=== PATIENT | female | born 1990 | race Caucasian/White ===

== ENCOUNTER 2016-05-25 23:38 | Inpatient (IN) | payer OTHER ==
[~2016-05-25] VITALS: Ht 157.5 cm; Wt 77.5 kg
[~2016-05-25 23:38] MED LIST: DEPO150I IM; IBUP400T20 PO; LAMO100 PO; TYLE3 PO
[2016-05-26] MEDS ORDERED: QUEtiapine FUMARATE 100 MG TAB PO SCH (01:00)
[2016-05-26] MEDS ORDERED: diphenhydrAMINE HCL 50 MG/ML VIAL - HS PRN IM (01:00)
[2016-05-26] MEDS ORDERED: traZODone HCL 50 MG TAB PO PRN (01:00)
[2016-05-26] MEDS ORDERED: LORazepam 2 MG/ML VIAL IM PRN (01:00)
[2016-05-26] MEDS ORDERED: MAGNESIUM HYDROXIDE SUSP 30 ML CUP PO PRN (01:00)
[2016-05-26] MEDS ORDERED: diphenhydrAMINE HCL 50 MG/ML VIAL IM PRN (01:00)
[2016-05-26] MEDS ORDERED: ACETAMINOPHEN 325 MG TAB PO PRN (01:00)
[2016-05-26] MEDS: LORazepam 1 MG TAB PO PRN (01:08)
[2016-05-26 01:10] VITALS: BP 109/59; PULSE 101; RESP 18; TEMP 98; O2SAT 100
[2016-05-26] MEDS: NICOTINE 21 MG/24 HR PATCH T-DERMAL SCH (08:35)
--- NOTE | 2016-05-26 10:46 | HHI.HP ---
Provisional Diagnosis Admission Date May 26, 2016 at 00:25 [place] I. Psychotic disorder Certification of Person's Competence To Provide Express and Informed Consent I have personally examined Adia Menchaca , a person being served at [facility] on, May 26, 2016 10:36. Express and informed consent means consent voluntarily given in writing, by a competent person, after sufficient explanation and disclosure of the subject matter involved to enable the person to make a knowing and willful decision without any element of force, fraud, deceit, duress, or other form of constraint or coercion. This person is 18 years of age or older, is not now known to be incompetent to consent to treatment with a guardian advocate, and does not have a health care surrogate or proxy currently making medical treatment decisions. I have found this person to be one of the following: [x] Competent to provide express and informed consent, as defined above, for voluntary admission to this facility and is competent to provide express and informed consent for treatment. He/she has the consistent capacity to make well reasoned, willful, and knowing decisions concerning his or her medical or mental health treatment. The person fully and consistently understands the purpose of the admission for examination/placement and is fully capable of personally exercising all rights assured [place] Incompetent to provide express and informed consent to voluntary admission, and this is incompetent to provide express and informed consent to treatment. The person must be transferred to involuntary status and a petition for a guardian advocate filed with the Circuit Court. [] Refusing to provide express and informed consent to voluntary admission but is competent to provide express and informed consent for treatment. The person must be discharged or transferred to involuntary status. Form shall be completed within 24 hours of a person's arrival at the receiving facility and filed in the clinical record of each person: 1. Admitted on a voluntary basis 2. Permitted to provide express and informed consent to his/her own treatment 3. Allowed to transfer from involuntary to voluntary status 4. Prior to permitting a person to consent to his or her own treatment after having been previously found incompetent to consent to treatment. History of Present Illness Capacity: Has Capacity HPI This is a 25-year-old female with a known history of polysubstance abuse and a history of cutting herself, who presently does not wish to talk about her recent for admission or provide information. She was transferred here under a Gonzalez act from the [facility] due to reports of paranoia and seeing smoke coming off her body. She was admitting to methamphetamine use their. Apparently her family wants nothing more to do with her and she is now homeless. In the emergency department in the [facility] she was voicing paranoid ideation, visual hallucinations, and vague suicidal threats. At this point the patient refuses to get out of bed and speak with this physician. By report, she has been treated at [facility] services when she was a minor. Review of Systems ROS Limitations: Clinical Condition Except as stated in HPI: all other systems reviewed are Neg Past Psych History Psychological trauma history Unknown. Patient refused to answer. Violence risk - others (6 mos) Minimal, based on recent activity. Violence risk - self (6 mos) Moderate, based on history. Substance Abuse History Drugs/Alcohol past 12 months Patient has a multiyear history of significant drug abuse and is apparently positive for hepatitis C. Due to self-inflicted cuts, she is also being prescribed Bactrim. Her most recent drug abuse has apparently been methamphetamine. Past Family Social History Coded Allergies: Morphine (Verified Allergy, Severe, 05/26/16) PER RECORD FROM [facility] Cultivated Oat Pollen (Verified Allergy, Mild, RASH, 11/22/09) Dust (Verified Allergy, Mild, RASH, 11/22/09) Active Scripts Acetaminophen/Codeine (Tylenol #3)300 Mg/30 Mg Tab1 Tab PO TIDPRN #10 FOR PAIN Prov:CHEMA GUERRERO M.D. 11/22/09 Ibuprofen (Motrin)400 Mg [id number] Mg PO Q8HPRN #21 Ref 1 FOR PAIN Prov:CHEMA GUERRERO M.D. 11/22/09 Reported Medications Lamotrigine (Lamictal)100 Mg [id number] Mg PO DAILY 11/22/09 Medroxyprogesterone Acetate (Depo-Provera Contraceptive)150 Mg/Ml [id number] Mg IM [id number] 11/22/09 Current Medications Medications (Trade) Dose Ordered Sig/Geena Route Start Time Stop Time Status Last Admin (Ativan) 1 mg Q6H PRN PO 05/26/16 01:00 05/26/16 01:08 (Ativan Inj) 1 mg Q6H PRN IM 05/26/16 01:00 (Benadryl) 50 mg Q6H PRN PO 05/26/16 01:00 (Benadryl Inj) 50 mg Q6H PRN IM 05/26/16 01:00 (Benadryl) 50 mg HS PRN PO 05/26/16 01:00 (Benadryl Inj) 50 mg HS PRN IM 05/26/16 01:00 (Desyrel) 50 mg HS PRN PO 05/26/16 01:00 (Tylenol) 650 mg Q4H PRN PO 05/26/16 01:00 (Milk Of Magnesia Liq) 30 ml DAILY PRN PO 05/26/16 01:00 (Mag-Al Plus Susp Liq) 30 ml Q6H PRN PO 05/26/16 01:00 (Habitrol 21 Mg Patch.24 Hr) 1 patch DAILY T-DERMAL 05/26/16 09:00 Miscellaneous Information 1 HS T-DERMAL 05/26/16 21:00 Family History Unknown. Patient refuses to answer. Social History Incomplete. Patient refuses to answer. She is homeless with a significant history of drug abuse, cutting herself and family discord. Patient's Strengths (min. 2) Resilient and cognitively intact. Physical Exam GENERAL: SKIN: Warm and dry. HEAD: Normocephalic. EYES: No scleral icterus. No injection or drainage. NECK: Supple, trachea midline. No JVD or lymphadenopathy. CARDIOVASCULAR: Regular rate and rhythm without murmurs, gallops, or rubs. RESPIRATORY: Breath sounds equal bilaterally. No accessory muscle use. GASTROINTESTINAL: Abdomen soft, non-tender, nondistended. MUSCULOSKELETAL: No cyanosis, or edema. BACK: Nontender without obvious deformity. No CVA tenderness. Vital Signs Vital Signs Date Time Temp Pulse Resp B/P Pulse Ox O2 Delivery O2 Flow Rate FiO2 05/26/16 01:10 98.0 101 18 109/59 100 Mental Status Examination At this time patient refuses to cooperate with mental status exam. Speech: Unremarkable Orientation: Person Memory: Unremarkable Thought Process: Goal Directed Thought Content: Other Hallucination Type: Visual Attention and Concentration: Other Attention Remarks Purposely refuses to pay attention. Suicidal Ideation: No Previous Suicide Attempts: No Homicidal Ideation: No Previous Homicide Attempts: No Insight: Poor Judgement: Unrealistic Affect: Oppositional Affect if Inappropriate: Blunt Mood: Oppositional Motor Activity: Normal gait Assessment & Plan Problem List: (1) Psychotic disorder ICD Code: F29 Assessment & Plan Estimated LOS: days patient will be observed and evaluated for further signs of psychosis and investigated with regard to history, toxicology screens, laboratory results and radiographic scans of her brain to determine if her psychosis is drug induced or at this point some other biological process. We will not start medication management for her psychosis until she is more alert and able to communicate or willing to communicate. At this time she will remain under a Gonzalez act. It is anticipated after she receives significant sleep that she will be able to participate more actively in her evaluation and treatment. It is also anticipated she will be in the hospital for several days. Chema Romero MD May 26, 2016 10:46
[2016-05-26] MEDS ORDERED: BACT800T5 PO (10:50)
[2016-05-26 17:00] VITALS: BP 99/54; PULSE 77; RESP 18; TEMP 98.2; O2SAT 98
[2016-05-26] MEDS: SULFAMETHOXAZOLE-TRIMETHOPRIM DS 800-160 MG TAB PO SCH (20:49)
[2016-05-26] MEDS: REMOVE OLD NICOTINE PATCH T-DERMAL SCH (20:49)
[2016-05-26] MEDS: diphenhydrAMINE HCL 50 MG CAP - HS PRN PO (20:51)
[2016-05-27 05:42] VITALS: BP 97/53; PULSE 68; RESP 17; TEMP 97.6; O2SAT 98
[2016-05-27] MEDS: NICOTINE 21 MG/24 HR PATCH T-DERMAL SCH (08:20)
[2016-05-27] MEDS: SULFAMETHOXAZOLE-TRIMETHOPRIM DS 800-160 MG TAB PO SCH ×2 (08:23→20:30)
--- NOTE | 2016-05-27 13:15 | HHI.PYPN ---
Subjective Remarks Pt seen and discussed with staff. Staff report that pt has been paranoid and believed smoke was coming out of her body. Today pt has been sleeping most of day. She reports paranoia is decreasing. She reports hx of methamphetamine abuse. She reports hx of previous psychiatric treatment but is not currently involved in seeing provider. She reports that she is now homeless after leaving relationship. Review of Systems Psychiatric: COMPLAINS OF: Delusions Objective Alert: Yes [place]: Person, Place, Date, Situation Mood: Calm Affect: Restricted Memory Intact: Immediate, Recent, Remote Hallucinations: Other (denies) Delusions: Yes Delusion Type: Paranoid Suicidal: Ideation (denies) Homicidal: Ideation (denies) Insight/Judgement poor Vitals/IOs Vital Signs Date Time Temp Pulse Resp B/P Pulse Ox O2 Delivery O2 Flow Rate FiO2 05/27/16 05:42 97.6 68 17 97/53 98 Assessment & Plan Problem List: (1) Psychotic disorder ICD Code: F29 Assessment & Plan Psychosis improving. Most likely related to substance abuse. Continue to observe. If symptoms do not clear, will consider trial of low dose antipsychotic. Estimated LOS: days Justification for Cont. Inpt. observation for safety Felipa Iverson MD May 27, 2016 13:14
[2016-05-27 15:15] VITALS: BP 117/70; PULSE 76; RESP 17; TEMP 98.7; O2SAT 100
[2016-05-27 19:51] VITALS: BP 117/70; PULSE 76; RESP 17; TEMP 98.7
[2016-05-27] MEDS: diphenhydrAMINE HCL 50 MG CAP - HS PRN PO (20:30)
[2016-05-27] MEDS: REMOVE OLD NICOTINE PATCH T-DERMAL SCH (20:31)
[2016-05-28 05:55] VITALS: BP 101/54; PULSE 70; RESP 18; TEMP 98.5; O2SAT 97
[2016-05-28] MEDS: SULFAMETHOXAZOLE-TRIMETHOPRIM DS 800-160 MG TAB PO SCH ×2 (08:25→20:35)
[2016-05-28] MEDS: NICOTINE 21 MG/24 HR PATCH T-DERMAL SCH (08:26)
[2016-05-28 16:23] VITALS: BP 118/56; PULSE 84; RESP 18; TEMP 98.3; O2SAT 98
[2016-05-28] MEDS: REMOVE OLD NICOTINE PATCH T-DERMAL SCH (20:34)
[2016-05-28] MEDS: diphenhydrAMINE HCL 50 MG CAP - HS PRN PO (20:35)
--- NOTE | 2016-05-28 23:07 | HHI.PYPN ---
Subjective Remarks Pt seen and discussed with staff. She denies return of psychotic symptoms, but reports mood remains "all over the place." She reports that she was given depakote and gabapentin in nursing home and found it helpful for mood. Pt wishes to restart medication. Risks vs benefits discussed with pt including potential side effects and indication for use. No SI/HI. 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 Most likely due to substance abuse. It appears pt may have underlying mood disorder. Will restart depakote and check level. Estimated LOS: days Justification for Cont. Inpt. medication changes Felipa Iverson MD May 28, 2016 23:07
[2016-05-29 06:40] VITALS: BP 106/56; PULSE 71; RESP 17; TEMP 98.1; O2SAT 97
[2016-05-29 07:20] LABS: AUTOMATED NEUTROPHIL # 4.1 TH/MM3 (1.8-7.7); BASOPHIL % 0.6 % (0.0-2.0); EOSINOPHIL # 0.3 TH/MM3 (0-0.4); EOSINOPHIL % 3.4 % (0.0-4.0); HEMO FLAGS DIFF FINAL; LYMPH % 32.2 % (9.0-44.0); LYMPHOCYTE # 2.5 TH/MM3 (1.0-4.8); MEAN CELL VOLUME 84.3 FL (80.0-100.0); MEAN CORPUSCULAR HEMOGLOBIN 28.7 PG (27.0-34.0); MONO % 9.6 % (0.0-8.0); NEUT % 54.2 % (16.0-70.0); PLATELET COUNT 268 TH/MM3 (150-450); RED BLOOD COUNT 4.62 MIL/MM3 (4.00-5.30); RED CELL DISTRIBUTION WIDTH 16.5 % (11.6-17.2); WHITE BLOOD COUNT 7.6 TH/MM3 (4.0-11.0)
[2016-05-29 07:51] LABS: ALKALINE PHOSPHATASE 54 U/L (45-117); ALT (GPT) 16 U/L (10-53); ANION GAP 9 MEQ/L (5-15); AST (GOT) 12 U/L (15-37); BICARBONATE 25.3 MEQ/L (21.0-32.0); BLOOD UREA NITROGEN 12 MG/DL (7-18); CHLORIDE 105 MEQ/L (98-107); GLOMERULAR FILTRATION RATE 76 ML/MIN (>89); POTASSIUM 4.4 MEQ/L (3.5-5.1); SODIUM (NA) 139 MEQ/L (136-145); TOTAL BILIRUBIN ADULT 0.3 MG/DL (0.2-1.0)
[2016-05-29] MEDS: DIVALPROEX DR 500 MG TABEC PO SCH ×2 (08:36→20:34)
[2016-05-29] MEDS: SULFAMETHOXAZOLE-TRIMETHOPRIM DS 800-160 MG TAB PO SCH ×2 (08:36→20:34)
[2016-05-29] MEDS: NICOTINE 21 MG/24 HR PATCH T-DERMAL SCH (08:36)
--- NOTE | 2016-05-29 11:03 | HHI.PYPN ---
Subjective Remarks Patient is fraser and irritable today. She feels that her medications have not been started as promised. She would like to return to her Neurontin and Depakote and possibly take an antidepressant medicine as well. She states she is willing to be here voluntarily. Apparently she is having some difficulty with her sheriff's officer as well. Review of Systems ROS Limitations: Clinical Condition Except as stated in HPI: all other systems reviewed are Neg Objective Alert: Yes [place]: Person, Place, Date, Situation Mood: Agitated Affect: Labile Memory Intact: Immediate, Recent, Remote Hallucinations: Other (denies) Delusions: No Delusion Type: Other (none) Suicidal: Ideation (denies) Homicidal: Ideation (denies) Insight/Judgement Mildly impaired but adequate. Labs Test 05/29/16 07:05 White Blood Count 7.6 TH/MM3 Red Blood Count 4.62 MIL/MM3 Hemoglobin 13.3 GM/DL Hematocrit 39.0 % Mean Corpuscular Volume 84.3 FL Mean Corpuscular Hemoglobin 28.7 PG Mean Corpuscular Hemoglobin 34.0 % Concent Red Cell Distribution Width 16.5 % Platelet Count 268 TH/MM3 Mean Platelet Volume 7.0 FL Neutrophils (%) (Auto) 54.2 % Lymphocytes (%) (Auto) 32.2 % Monocytes (%) (Auto) 9.6 % Eosinophils (%) (Auto) 3.4 % Basophils (%) (Auto) 0.6 % Neutrophils # (Auto) 4.1 TH/MM3 Lymphocytes # (Auto) 2.5 TH/MM3 Monocytes # (Auto) 0.7 TH/MM3 Eosinophils # (Auto) 0.3 TH/MM3 Basophils # (Auto) 0.0 TH/MM3 CBC Comment DIFF FINAL Differential Comment Sodium Level 139 MEQ/L Potassium Level 4.4 MEQ/L Chloride Level 105 MEQ/L Carbon Dioxide Level 25.3 MEQ/L Anion Gap 9 MEQ/L Blood Urea Nitrogen 12 MG/DL Creatinine 0.90 MG/DL Estimat Glomerular Filtration 76 ML/MIN Rate Random Glucose 94 MG/DL Calcium Level 8.7 MG/DL Total Bilirubin 0.3 MG/DL Aspartate Amino Transf 12 U/L (AST/SGOT) Alanine Aminotransferase 16 U/L (ALT/SGPT) Alkaline Phosphatase 54 U/L Total Protein 7.7 GM/DL Albumin 3.6 GM/DL Vitals/IOs Vital Signs Date Time Temp Pulse Resp B/P Pulse Ox O2 Delivery O2 Flow Rate FiO2 05/29/16 06:40 98.1 71 17 106/56 97 Assessment & Plan Problem List: (1) Adjustment disorder with mixed disturbance of emotions and conduct ICD Code: F43.25 (2) Mood disorder ICD Code: F39 Assessment & Plan Estimated LOS: days patient feels fraser and irritable and depressed and would like to be stabilized on her medications. This includes at least Depakote and Neurontin. This physician will prescribe those medicines today. Patient has signed voluntarily but this physician feels she is attempting to avoid the legal system because she is on probation. Justification for Cont. Inpt. Patient will not contract for safety. Chema Romero MD May 29, 2016 11:03
[2016-05-29 15:15] VITALS: BP 105/59; PULSE 92; RESP 18; TEMP 98.5; O2SAT 100
[2016-05-29] MEDS: diphenhydrAMINE HCL 50 MG CAP PO PRN (16:04)
[2016-05-29] MEDS: GABAPENTIN 300 MG CAP PO SCH (20:34)
[2016-05-29] MEDS: REMOVE OLD NICOTINE PATCH T-DERMAL SCH (20:35)
[2016-05-29] MEDS: diphenhydrAMINE HCL 50 MG CAP - HS PRN PO (20:35)
[2016-05-30 06:25] VITALS: BP 128/62; PULSE 56; RESP 18; TEMP 98.5; O2SAT 97
[2016-05-30] MEDS: GABAPENTIN 300 MG CAP PO SCH ×2 (09:03→20:27)
[2016-05-30] MEDS: SULFAMETHOXAZOLE-TRIMETHOPRIM DS 800-160 MG TAB PO SCH ×2 (09:03→20:27)
[2016-05-30] MEDS: DIVALPROEX DR 500 MG TABEC PO SCH ×2 (09:03→20:27)
[2016-05-30] MEDS: REMOVE OLD NICOTINE PATCH T-DERMAL SCH (09:05)
[2016-05-30] MEDS: NICOTINE 21 MG/24 HR PATCH T-DERMAL SCH (09:05)
--- NOTE | 2016-05-30 13:12 | HHI.PYPN ---
Subjective Remarks Patient was seen and discussed with the staff psychiatrist. Patient reported that she has been feeling depressed and frustrated sometimes she feels anxious nervous and worried but she could be reassured. She tends to isolate herself and keeps to herself in her room. But no behavior or management problem reported. Patient denied any suicidal ideation intentions or plan. Denied any active auditory or visual hallucinations. Denied any behavior or management problem. She has been sleeping fairly well. We will try her on the when necessary Ativan for anxiety. Continue the same treatment Review of Systems Except as stated in HPI: all other systems reviewed are Neg Psychiatric: COMPLAINS OF: Anxiety, Mood changes, Depression Objective Alert: Yes [place]: Person, Place, Date, Situation Mood: Anxious, Depressed Affect: Labile, Restricted Memory Intact: Immediate, Recent, Remote Hallucinations: Other (denies) Delusions: No Delusion Type: Other (none) Suicidal: Ideation (denies) Homicidal: Ideation (denies) Insight/Judgement Fair Vitals/IOs Vital Signs Date Time Temp Pulse Resp B/P Pulse Ox O2 Delivery O2 Flow Rate FiO2 05/30/16 06:25 98.5 56 18 128/62 97 Assessment & Plan Problem List: (1) Adjustment disorder with mixed disturbance of emotions and conduct ICD Code: F43.25 (2) Mood disorder ICD Code: F39 Assessment & Plan Estimated LOS: days Justification for Cont. Inpt. Monitoring of the medication Request HC Surrog/Guard Advoc?: No Erik Hopson MD May 30, 2016 13:12
[2016-05-30] MEDS ORDERED: LORazepam 0.5 MG TAB PO PRN (13:15)
[2016-05-30 15:31] VITALS: BP 114/63; PULSE 96; RESP 18; TEMP 98.1; O2SAT 97
[2016-05-30] MEDS: ALUMINUM/MAGNESIUM/SIMETH 30 ML CUP PO PRN (20:26)
[2016-05-31 06:40] VITALS: BP 113/51; PULSE 100; RESP 17; TEMP 99.4
[2016-05-31] MEDS: CITALOPRAM HYDROBROMIDE 40 MG TAB PO SCH (08:59)
[2016-05-31] MEDS: SULFAMETHOXAZOLE-TRIMETHOPRIM DS 800-160 MG TAB PO SCH ×2 (08:59→20:20)
[2016-05-31] MEDS: DIVALPROEX DR 500 MG TABEC PO SCH ×2 (08:59→20:22)
[2016-05-31] MEDS: GABAPENTIN 300 MG CAP PO SCH ×2 (08:59→20:21)
[2016-05-31] MEDS: NICOTINE 21 MG/24 HR PATCH T-DERMAL SCH (09:00)
[2016-05-31] MEDS: ALUMINUM/MAGNESIUM/SIMETH 30 ML CUP PO PRN (09:00)
--- NOTE | 2016-05-31 13:19 | HHI.PYPN ---
Subjective Remarks Patient remained seclusive and does not wish to talk with this physician. She is eating lunch. It is difficult to ascertain if she is truly psychotic or if she is malingering to have a place to stay. Review of Systems ROS Limitations: Clinical Condition Except as stated in HPI: all other systems reviewed are Neg Objective Alert: Yes [place]: Person, Place Mood: Anxious, Depressed Affect: Restricted Memory Intact: Immediate, Recent, Remote Hallucinations: Auditory, Other (denies) Delusions: Yes Delusion Type: Paranoid Suicidal: Ideation (denies) Homicidal: Ideation (denies) Insight/Judgement Impaired based on her behavior in the hospital. Vitals/IOs Vital Signs Date Time Temp Pulse Resp B/P Pulse Ox O2 Delivery O2 Flow Rate FiO2 05/31/16 06:40 99.4 100 17 113/51 05/30/16 15:31 97 Assessment & Plan Problem List: (1) Psychotic disorder ICD Code: F29 (2) Adjustment disorder with mixed disturbance of emotions and conduct ICD Code: F43.25 (3) Mood disorder ICD Code: F39 Assessment & Plan Estimated LOS: days Justification for Cont. Inpt. Unable to care for self. Request HC Surrog/Guard Advoc?: No Chema Romero MD May 31, 2016 13:19
[2016-05-31 19:27] VITALS: BP 96/60; PULSE 50; RESP 18; TEMP 98.7; O2SAT 100
[2016-05-31] MEDS: LORazepam 1 MG TAB PO PRN (20:20)
[2016-05-31] MEDS: diphenhydrAMINE HCL 50 MG CAP PO PRN (20:21)
[2016-05-31] MEDS: REMOVE OLD NICOTINE PATCH T-DERMAL SCH (20:22)
[2016-06-01 05:26] VITALS: BP 105/55; PULSE 88; RESP 16; TEMP 98.6; O2SAT 100
[2016-06-01] MEDS: CITALOPRAM HYDROBROMIDE 40 MG TAB PO SCH (08:49)
[2016-06-01] MEDS: DIVALPROEX DR 500 MG TABEC PO SCH ×2 (08:49→21:07)
[2016-06-01] MEDS: GABAPENTIN 300 MG CAP PO SCH ×2 (08:49→21:07)
[2016-06-01] MEDS: SULFAMETHOXAZOLE-TRIMETHOPRIM DS 800-160 MG TAB PO SCH ×2 (08:49→21:07)
[2016-06-01] MEDS: LORazepam 1 MG TAB PO PRN (08:50)
[2016-06-01] MEDS: NICOTINE 21 MG/24 HR PATCH T-DERMAL SCH (08:52)
--- NOTE | 2016-06-01 11:29 | HHI.PYPN ---
Subjective Remarks Patient seen and examined with nurse. Chart reviewed. Case discussed with nursing staff who reports patient has been fairly seclusive to her room and has been generally medication compliant, although I do see that she refused the dose of Depakote. I do see that Dr. Romero articulated some concerns about malingering in this patient. On my examination today, patient's thoughts are linear and logical and there is no evidence of any psychosis. However, she is quite vague regarding her current psychiatric symptomatology. She would like to be on antidepressant as she describes transient periods of low mood lasting days, and I do see that Celexa was added, and I updated her about this change. She denies any SI or HI. She is extremely medication seeking for Ativan, but I have declined to titrate this medication because of patient's history of substance use disorder. I have endeavored to work with the patient to identify what symptom it is that she wants the Ativan for and to try to treat that symptom, but the patient cannot really tell me why she wants more Ativan and in any event declines additional medication management generally. My suspicion is that she was simply hoping for more Ativan. Denies side effects from medications. Review of Systems Other No physical complaints today Objective Alert: Yes [place]: Person, Place (at least) Mood: Calm Affect: Blunted Memory Intact: Comment (seems intact on clinical exam) Hallucinations: Other (no AVH) Delusions: No Delusion Type: Other (no delusional material) Suicidal: Ideation (denies suicidal ideation) Homicidal: Ideation (denies homicidal ideation) Insight/Judgement Fair Remarks No abnormal motor movements noted. No signs of any withdrawal noted. Thought process linear. Speech within normal limits for rate, tone and volume. Grooming and hygiene are at least fair. Labs Labs reviewed. I note that a beta hCG was not checked here. Unclear if this was checked at outside hospital. I have ordered a stat beta hCG now. Vitals/IOs Vital Signs Date Time Temp Pulse Resp B/P Pulse Ox O2 Delivery O2 Flow Rate FiO2 06/01/16 05:26 98.6 88 16 105/55 100 Assessment & Plan Problem List: (1) Mood disorder ICD Code: F39 (2) History of substance use disorder Assessment & Plan: ?active ICD Code: Z87.898 Assessment & Plan There is no evidence of any ongoing psychosis, and I have removed the psychotic disorder diagnosis from her diagnostic schema. Patient's remaining psychiatric symptomatology is exceedingly vague, and I share Dr. Romero's concerns about malingering, part of the focus of which might be for benzodiazepines. I have discontinued the patient's Ativan. I will continue her Depakote, gabapentin and Celexa as ordered. The patient has declined any further medication management. She has Benadryl as needed available for the management of any anxiety. I will check a stat beta hCG and I have added an ammonia level to the Depakote level already ordered for tomorrow morning. Continue other medications and care as ordered. Justification for Cont. Inpt. Monitoring for impairments in safety. So far no evidence of such. Discharge Planning Given that there has been no evidence of ongoing impairments in safety and there is no evidence of ongoing psychosis and given that the patient is declining further medication management, I have asked the counselor to begin final discharge planning. Anticipate discharge tomorrow barring some clinical worsening. Request HC Surrog/Guard Advoc?: No Garrett Saravia MD Jun 01, 2016 11:29
[2016-06-01 18:19] VITALS: BP 104/51; PULSE 86; RESP 16; TEMP 98.2; O2SAT 100
[2016-06-01] MEDS: REMOVE OLD NICOTINE PATCH T-DERMAL SCH (21:00)
[2016-06-01] MEDS: diphenhydrAMINE HCL 50 MG CAP PO PRN (21:07)
[2016-06-02 06:01] VITALS: BP 119/79; PULSE 87; RESP 18; TEMP 97.5; O2SAT 100
[2016-06-02] MEDS: NICOTINE 21 MG/24 HR PATCH T-DERMAL SCH (09:14)
[2016-06-02] MEDS: REMOVE OLD NICOTINE PATCH T-DERMAL SCH (09:14)
[2016-06-02] MEDS: GABAPENTIN 300 MG CAP PO SCH (09:15)
[2016-06-02] MEDS: DIVALPROEX DR 500 MG TABEC PO SCH (09:15)
[2016-06-02] MEDS: SULFAMETHOXAZOLE-TRIMETHOPRIM DS 800-160 MG TAB PO SCH (09:15)
[2016-06-02] MEDS: CITALOPRAM HYDROBROMIDE 40 MG TAB PO SCH (09:15)
[2016-06-02] MEDS ORDERED: BACT800T5 PO (11:20)
[2016-06-02] MEDS ORDERED: NEUR300C PO (11:20)
[2016-06-02] MEDS ORDERED: CELE40TA PO (11:20)
[2016-06-02] MEDS ORDERED: DIVA500T PO (11:20)
--- NOTE | 2016-06-02 11:21 | HHI.DS ---
Psychiatry Discharge Summary Inpatient Psychiatric care?: Yes Advance Directive: No Reason Not Provided: PAPERWORK GIVEN Mental Health AdvanceDirective: No Health Care Proxy: No Admission Admission Date May 26, 2016 at 00:25 Admission Diagnosis: (1) Psychotic disorder ICD Code: F29 Brief History This is a 25-year-old female with a known history of polysubstance abuse and a history of cutting herself, who presently does not wish to talk about her recent for admission or provide information. She was transferred here under a Gonzalez act from the [facility] due to reports of paranoia and seeing smoke coming off her body. She was admitting to methamphetamine use their. Apparently her family wants nothing more to do with her and she is now homeless. In the emergency department in the [facility] she was voicing paranoid ideation, visual hallucinations, and vague suicidal threats. At this point the patient refuses to get out of bed and speak with this physician. By report, she has been treated at [facility] when she was a minor. Tobacco Use In Past 30 Days: 5 or More Cigarettes/Day Alcohol Use: Never Hospital Course Patient was admitted to a locked, inpatient psychiatric unit. Appropriate precautions were in place throughout patient's hospital stay. Patient was seen and examined daily on the unit by psychiatry and also visited by counselor. Medications were adjusted. Patient tolerated medication changes well without significant side effects. Patient had improvement in her presenting psychiatric symptomatology. In particular she had resolution of her presenting psychosis. There was no evidence of any suicidality or homicidality on the inpatient unit. Review of charting indicates patient has been sleeping and eating well prior to discharge. Her participation in therapeutic unit activities has been limited. Dr. Romero, who attended the patient at the beginning of her hospital stay, had concerns regarding malingering either for custodial or to avoid legal consequences, and while attended on her case the patient was quite medication seeking for benzodiazepines, and this may represent an additional source of secondary gain. On the day of discharge: Patient seen and examined with counselor and occupational therapist in treatment team. Chart reviewed. Case discussed with nurse, counselor and occupational therapist. Patient has been no behavioral problem per nursing staff. Per counselor, patient's options for long-term, stable housing are limited. Per occupational therapist, patient's participation in groups has been minimal. On my examination today, the patient is smiling and appears to be in good spirits. She does not describe any issues with mood. She denies any suicidal or homicidal ideation on direct questioning. She denies audiovisual hallucinations, and I can elicit no delusional beliefs, nor is there any other evidence of ongoing psychosis. She does remain medication seeking for benzodiazepines. She denies side effects from medications besides perhaps some mild nausea without emesis. She has no physical complaints otherwise. I did offer to retain the patient on the inpatient unit for additional observation, but the patient is requesting discharge from the inpatient psychiatric unit today. Weighing the acute, chronic, and protective factors, I refrigeration houseman to a reasonable degree of medical certainty that the patient is at low imminent risk of harm to self or others from a mental illness as defined under the Gonzalez act and her level of function is adequate for outpatient care. Patient does not meet criteria for involuntary psychiatric hospitalization and inasmuch as she is requesting discharge from the inpatient psychiatric unit today, I will discharge her to self with psychiatric follow-up as arranged by counselor. Patient is also follow-up with primary care. I counseled the patient regarding warning signs for need to return to the psychiatric emergency room as part of the general safety plan. Results Blood Pressure 119 / 79 Vital Signs Date Time Temp Pulse Resp B/P Pulse Ox O2 Delivery O2 Flow Rate FiO2 06/02/16 06:01 97.5 87 18 119/79 100 Laboratory Results Test 06/02/16 09:05 Valproic Acid (Depakene) Level 69 MCG/ML (50-100) Summary of Major Lab Results Depakote level is within the therapeutic range and ammonia level was not elevated. Summary of Procedures None done Imaging None done Pending results at discharge: No Medications # of Antipsychotic meds at D/C: 0 Approp Antipsych med options 1 - Minimum of three failed multiple trials of monotherapy. 2 - Documented plan to taper to monotherapy due to previous use of multiple meds OR cross-taper in progress at D/C. 3 - Documentation of augmentation of Clozapine. 4 - Justification other than those listed in allowable values 1-3, document here : Discharge Discharge Date: Jun 02, 2016 Discharge Diagnosis: (1) Mood disorder Diagnosis: Principal (stabilized) ICD Code: F39 (2) History of substance use disorder Diagnosis: Secondary ICD Code: Z87.898 GAF on discharge is 55. Mental Status Exam at Disch Patient is casually dressed. She is well groomed and maintaining basic hygiene. She is awake and alert and oriented to person and hospital at least. No evidence of delirium. No abnormal motor movements noted. Speech is within normal limits for rate, tone and volume. Language and fund of knowledge seem average. Mood is fair and affect is full and reactive. Thought process linear. No loosening of associations. No evident delusions. Denies audiovisual hallucinations. Denies suicidal or homicidal ideation. Insight and judgment are fair. Pt Condition on Discharge: Stable Discharge Disposition: Discharge Home Discharge Instructions Diet Instructions: As Tolerated, No Restrictions Activities you can perform: Weight Bearing as Desiree Scheduled Appointment: [facility] Appointment Date: Jun 07, 2016 Appointment Time: 7:30am New Medications: Citalopram (Celexa) 40 Mg Tab 40 MG PO DAILY Mental Health Days 10 Ref [address] (Divalproex DR) 500 Mg Tabdr 500 MG PO BID Mental Health Days 10 Ref 2 TAB Gabapentin (Neurontin) 300 Mg Cap 600 MG PO BID Mental Health Days 10 Ref 2 CAP Sulfamethoxazole-Trimethoprim (Bactrim DS) 800-160 Mg Tab 1 TAB PO Q12HR Antibiotic Days 3 Ref 0 TAB Discontinued Medications: Acetaminophen/Codeine (Tylenol #3) 300 Mg/30 Mg Tab 1 TAB PO TIDPRN FOR PAIN #10 Ibuprofen (Motrin) 400 Mg Tab 400 MG PO Q8HPRN FOR PAIN #21 Ref 1 Lamotrigine (Lamictal) 100 Mg Tab 100 MG PO DAILY Medroxyprogesterone Acetate (Depo-Provera Contraceptive) 150 Mg/Ml Susp 150 MG IM [id number] Sulfamethoxazole-Trimethoprim (Bactrim DS) 800-160 Mg Tab 1 TAB PO BID Infection Days 10 Ref 0 TAB Discharge Time <= 30 minutes Discharge/Advance Care Plan Health Problems: (1) Mood disorder (2) History of substance use disorder Goals to promote your health * To prevent worsening of your condition and complications * To maintain your health at the optimal level Directions to meet your goals Take your medications as prescribed Follow your dietary instruction Follow activity as directed Keep your appointments as scheduled Take your immunizations and boosters as scheduled If your symptoms worsen call your PCP, if no PCP go to Urgent Care Center or Emergency Room For 24/ questions related to your inpatient stay or results of tests pending at discharge, please contact Dr. Garrett Saravia at Smoking is Dangerous to Your Health. Avoid second hand smoking Garrett Saravia MD Jun 02, 2016 11:20
== END 2016-06-02 14:55 | disposition home or self-care (01) | DRG 897 ==
LOC: H260 05-26 00:25 → H270 05-26 00:33
PROVIDERS: ADMIT Psychiatry & Neurology Psychiatry; ATTEND Psychiatry & Neurology Psychiatry
DX: F19.151 Other psychoactive substance abuse with psychoactive substance-induced psychotic disorder with hallucinations (principal); F68.10 Factitious disorder imposed on self, unspecified; B18.2 Chronic viral hepatitis C; F15.90 Other stimulant use, unspecified, uncomplicated; Z59.0 Homelessness; F43.25 Adjustment disorder with mixed disturbance of emotions and conduct; F41.9 Anxiety disorder, unspecified
CPT/HCPCS: 80053; 80164; 82140; 84703; 85025; Q0163

== ENCOUNTER 2016-06-05 00:19 | Emergency (ER) | payer SELFPAY ==
[~2016-06-05] VITALS: Ht 157.5 cm; Wt 76.0 kg
[~2016-06-05 00:19] MED LIST changes: +BACT800T5 PO; +CELE40TA PO; -DEPO150I IM; +DIVA500T PO; -IBUP400T20 PO; -LAMO100 PO; +NEUR300C PO; -TYLE3 PO
[2016-06-05 00:22] VITALS: BP 105/58; PULSE 99; RESP 16; TEMP 98.4; O2SAT 99
[2016-06-05 02:20] VITALS: BP 97/55; PULSE 87; RESP 18; TEMP 98; O2SAT 99
[2016-06-05] MEDS ORDERED: SODIUM CHLORIDE 0.9% FLUSH 5 ML FLUSH IVF PRN (02:30)
--- NOTE | 2016-06-05 02:32 | PD ---
HPI Chief Complaint: Abdominal Pain Time Seen by Provider: 02:18 Travel History International Travel<30 days: No Contact w/Intl Traveler<30days: No Traveled to known affect area: No History of Present Illness HPI This is a 25-year-old female who presents to the emergency department with abdominal pain that she says is been going on all day, constant, feeling like her intestines are exploding, worse with bowel movements, associated with multiple episodes of vomiting and nausea. She denies any fevers or chills. She denies any dysuria or hematuria and denies any vaginal discharge. She says she's never had abdominal pain like this before. She doesn't think she could be . PFSH Past Medical History ADHD: No Arthritis: Yes (POSSIBLE [place] ARTHRITIS) Bipolar Disorder: Yes Anxiety: Yes Depression: Yes Cancer: No Cardiovascular Problems: No Diabetes: No Diminished Hearing: No Endocrine: No Gastrointestinal Disorders: Yes (HEP C) Genitourinary: No Immune Disorder: No Musculoskeletal: Yes (SPINAL STENOSIS, SCOLIOSIS) Neurologic: Yes Psychiatric: Yes (HBS HX/SCHIZOAFFECTIVE, PTSD, ANXIETY DO) Reproductive: No Respiratory: No Migraines: No Schizophrenia: Yes Seizures: Yes (NONE RECENTLY) Thyroid Disease: No Ulcer: No ?: Not LMP: 04/14/16 : 2 Para: 1 Miscarriage: 1 : 1 Dilation and Curettage (D&C): Yes Past Surgical History Appendectomy: No Section: Yes (2008) Cholecystectomy: No Other Surgery: Yes (RECENT ELECTIVE ) Social History Alcohol Use: No Tobacco Use: Yes (5-10 cigs daily) Substance Use: Yes (AMPHETAMINES) Allergies-Medications (Allergen,Severity, Reaction): Coded Allergies: Morphine (Verified Allergy, Severe, 06/05/16) PER RECORD FROM [facility] Cultivated Oat Pollen (Verified Allergy, Mild, RASH, 06/05/16) Dust (Verified Allergy, Mild, RASH, 06/05/16) Reported Meds & Prescriptions Reported Meds & Active Scripts Active Bactrim DS (Sulfamethoxazole-Trimethoprim) 800-160 Mg Tab 1 Tab PO Q12HR 3 Days Neurontin (Gabapentin) 300 Mg Cap 600 Mg PO BID [address] (Divalproex Sodium) 500 Mg Tabdr 500 Mg PO BID 10 Days Celexa (Citalopram Hydrobromide) 40 Mg Tab 40 Mg PO DAILY 10 Days Review of Systems Except as stated in HPI: all other systems reviewed are Neg Physical Exam Narrative GENERAL:Well appearing, no acute distress SKIN: Linear scars on the bilateral upper extremities. HEAD: Atraumatic. Normocephalic. EYES: Pupils dilated and reactive. No injection or drainage. ENT: Moist mucous membranes NECK: Trachea midline. CARDIOVASCULAR: Regular rate and rhythm. No murmur appreciated. RESPIRATORY: Clear to auscultation. Breath sounds equal bilaterally. GASTROINTESTINAL: Abdomen soft, diffusely tender to palpation with no rebound or guarding. MUSCULOSKELETAL: No obvious deformities. NEUROLOGICAL: Somnolent but awakens to answer questions.. No obvious cranial nerve deficits. Moving all extremities. PSYCHIATRIC: Appropriate mood and affect; insight and judgment normal. Data Data Last Documented VS Vital Signs Date Time Temp Pulse Resp B/P Pulse Ox O2 Delivery O2 Flow Rate FiO2 06/05/16 02:46 16 98 Room Air 06/05/16 02:20 98.0 87 97/55 Orders Complete Blood Count With Diff (06/05/16 02:24) Comprehensive Metabolic Panel (06/05/16 02:24) Lactic Acid (06/05/16 02:24) Urinalysis - C+S If Indicated (06/05/16 02:24) Ct Abd/Pel W Iv Contrast(Rout) (06/05/16 02:24) Iv Access Insert/Monitor (06/05/16 02:24) Ecg Monitoring (06/05/16 02:24) Oximetry (06/05/16 02:24) Sodium Chloride 0.9% Flush (Ns Flush) (06/05/16 02:30) Ed Urine Pregnancytest Poc (06/05/16 02:24) Ketorolac Inj (Toradol Inj) (06/05/16 02:45) Wet Prep Profile (06/05/16 03:06) Drug Screen, Random Urine (06/05/16 03:06) Iohexol 350 Inj (Omnipaque 350 Inj) (06/05/16 03:14) Labs Laboratory Tests Test 06/05/16 06/05/16 02:30 02:35 Urine Color LIGHT-YELLOW Urine Turbidity CLEAR Urine pH 6.5 Urine Specific [place] 1.003 Urine Protein NEG mg/dL Urine Glucose (UA) NEG mg/dL Urine Ketones NEG mg/dL Urine Occult Blood NEG Urine Nitrite NEG Urine Bilirubin NEG Urine Urobilinogen LESS THAN 2.0 MG/DL Urine Leukocyte Esterase NEG Urine RBC LESS THAN 1 /hpf Urine WBC LESS THAN 1 /hpf Urine Squamous Epithelial <1 /hpf Cells Urine Bacteria RARE /hpf Urine Mucus FEW /lpf Microscopic Urinalysis Comment CULT NOT INDICATED Urine Opiates Screen NEG Urine Barbiturates Screen NEG Urine Amphetamines Screen NEG Urine Benzodiazepines Screen NEG Urine Cocaine Screen NEG Urine Cannabinoids Screen NEG White Blood Count 9.9 TH/MM3 Red Blood Count 3.93 MIL/MM3 Hemoglobin 11.2 GM/DL Hematocrit 32.5 % Mean Corpuscular Volume 82.9 FL Mean Corpuscular Hemoglobin 28.5 PG Mean Corpuscular Hemoglobin 34.3 % Concent Red Cell Distribution Width 15.0 % Platelet Count 209 TH/MM3 Mean Platelet Volume 7.7 FL Neutrophils (%) (Auto) 66.8 % Lymphocytes (%) (Auto) 20.1 % Monocytes (%) (Auto) 10.2 % Eosinophils (%) (Auto) 2.6 % Basophils (%) (Auto) 0.3 % Neutrophils # (Auto) 6.6 TH/MM3 Lymphocytes # (Auto) 2.0 TH/MM3 Monocytes # (Auto) 1.0 TH/MM3 Eosinophils # (Auto) 0.3 TH/MM3 Basophils # (Auto) 0.0 TH/MM3 CBC Comment DIFF FINAL Differential Comment Sodium Level 136 MEQ/L Potassium Level 3.6 MEQ/L Chloride Level 100 MEQ/L Carbon Dioxide Level 29.0 MEQ/L Anion Gap 7 MEQ/L Blood Urea Nitrogen 5 MG/DL Creatinine 0.65 MG/DL Estimat Glomerular Filtration 110 ML/MIN Rate Random Glucose 90 MG/DL Lactic Acid Level 0.8 mmol/L Calcium Level 8.3 MG/DL Total Bilirubin 0.3 MG/DL Aspartate Amino Transf 29 U/L (AST/SGOT) Alanine Aminotransferase 44 U/L (ALT/SGPT) Alkaline Phosphatase 47 U/L Total Protein 6.9 GM/DL Albumin 3.3 GM/DL [facility] Medical Decision Making Medical Screen Exam Complete: Yes Emergency Medical Condition: Yes Interpretation(s) afebrile, no tachycardia, normotensive mild anemia electrolytes within normal limits lactic acid 0.8 Urine drug screen is negative urinalysis: no infection Differential Diagnosis Colitis, appendicitis, diverticulitis, urinary tract infection, pelvic inflammatory disease Narrative Course This is a 25-year-old female who presents to the emergency department with abdominal discomfort. She is placed on a monitor and an IV was established. Labs are obtained which are reassuring. Urinalysis is negative for infection. She denies any vaginal discharge and would like to defer pelvic exam. CT abdomen and pelvis was obtained which demonstrates some circumferential thickening around the cecum. I discussed with the patient the possibility of inflammatory bowel disease. I think it's reasonable to discharge her on antibiotics. She appears quite well otherwise. Diagnosis Primary Impression: Enteritis Referrals: [facility] Patient Instructions: General Instructions Additional Instructions: If you develop severe or worsening abdominal pain, fever>100.4, persistent vomiting or inability to eat or drink return to the emergency department immediately. Follow up with your primary care physician in 1-2 days for a check-up. Med/Other Pt SpecificInfo: Prescription(s) given Scripts Metronidazole (Flagyl)500 Mg [id number] Mg PO TID 10 Days Ref 0 Prov:Ernestine Sher MD 06/05/16 Ciprofloxacin 500 Mg [id number] Mg PO BID 10 Days Prov:Ernestine Sher MD 06/05/16 Disposition: DISCHARGE HOME Condition: Stable Ernestine Sher MD Jun 05, 2016 02:32
[2016-06-05] MEDS ORDERED: KETOROLAC TROMETHAMINE 30 MG/ML (IVP) VIAL IV PUSH ONE (02:45)
[2016-06-05 02:46] VITALS: RESP 16; O2SAT 98
[2016-06-05 02:47] LABS: AUTOMATED NEUTROPHIL # 6.6 TH/MM3 (1.8-7.7); BASOPHIL % 0.3 % (0.0-2.0); EOSINOPHIL # 0.3 TH/MM3 (0-0.4); EOSINOPHIL % 2.6 % (0.0-4.0); HEMATOCRIT 32.5 % (35.0-46.0); HEMO FLAGS DIFF FINAL; LYMPH % 20.1 % (9.0-44.0); MEAN CELL VOLUME 82.9 FL (80.0-100.0); MEAN CORPUSCULAR HEMOGLOBIN 28.5 PG (27.0-34.0); MEAN CORPUSCULAR HGB CONC 34.3 % (32.0-36.0); MONO % 10.2 % (0.0-8.0); NEUT % 66.8 % (16.0-70.0); PLATELET COUNT 209 TH/MM3 (150-450); RED BLOOD COUNT 3.93 MIL/MM3 (4.00-5.30); WHITE BLOOD COUNT 9.9 TH/MM3 (4.0-11.0)
[2016-06-05 02:49] LABS: BACTERIA, URINE RARE /hpf; BLOOD, URINE NEG (NEG); COMMENT (UR) CULT NOT INDICATED; CULTURE IF INDICATED CULT NOT INDICATED; GLUCOSE,URINE NEG (NEG); KETONE, URINE NEG (NEG); MUCUS URINE FEW /lpf (OCC); NITRITE,URINE NEG (NEG); PH, URINE 6.5 (5.0-8.5); SQUAMOUS EPITHELIAL CELL URINE <1 /hpf (0-5); URINE COLOR LIGHT-YELLOW (YELLW/STRAW)
[2016-06-05 03:07] LABS: ALT (GPT) 44 U/L (10-53); ANION GAP 7 MEQ/L (5-15); AST (GOT) 29 U/L (15-37); BLOOD UREA NITROGEN 5 MG/DL (7-18); CHLORIDE 100 MEQ/L (98-107); GLOMERULAR FILTRATION RATE 110 ML/MIN (>89); POTASSIUM 3.6 MEQ/L (3.5-5.1); SODIUM (NA) 136 MEQ/L (136-145)
[2016-06-05 03:09] LABS: ALKALINE PHOSPHATASE 47 U/L (45-117); TOTAL BILIRUBIN ADULT 0.3 MG/DL (0.2-1.0)
[2016-06-05] MEDS ORDERED: IOHEXOL 350 MG/ML 10 ML VIAL (for RAD DIAG) IV ONE (03:14)
[2016-06-05 03:56] LABS: AMPHETAMINE, URINE NEG (NEG); BARBITURATES, URINE NEG (NEG); COCAINE, URINE NEG (NEG)
--- NOTE | 2016-06-05 04:07 | RADRPT ---
EXAM DATE/TIME: 06/05/2016 03:13 [place] COMPARISON: No previous studies available for comparison. INDICATIONS : Bilateral lower quadrant abdominal pain. IV CONTRAST: 90 cc Omnipaque 350 (iohexol) IV ORAL CONTRAST: No oral contrast ingested. RADIATION DOSE: 10.13 CTDIvol (mGy) MEDICAL HISTORY : Hepatitis C. Seizures. Spinal stenosis.Substance abuse. SURGICAL HISTORY : None. ENCOUNTER: Initial ACUITY: 1 day PAIN SCALE: 6/10 LOCATION: Bilateral lower quadrant TECHNIQUE: Volumetric scanning of the abdomen and pelvis was performed. Using automated exposure control and ad justment of the mA and/or kV according to patient size, radiation dose was kept as low as reasonably achievable to obtain optimal diagnostic quality images. FINDINGS: LOWER LUNGS: The visualized lower lungs are clear. LIVER: Liver is homogeneous and within normal limits. Gallbladder nondistended. SPLEEN: Spleen is mildly enlarged measuring 13 cm in craniocaudal dimension. PANCREAS: Within normal limits. KIDNEYS: Normal in size and shape. There is no mass, stone or hydronephrosis. ADRENAL GLANDS: Within normal limits. VASCULAR: Within normal limits. BOWEL/MESENTERY: Circumferential wall thickening is seen in the cecum. Visualized portion of the appendix within lupillo l limits. ABDOMINAL WALL: Within normal limits. RETROPERITONEUM: There is no lymphadenopathy. BLADDER: No wall thickening or mass. REPRODUCTIVE: Left ovary is somewhat prominent in size measuring 4.8 x 3.9 x 3.0 cm. It contains a rounded 3.4 cm h ypodensity. Uterus and right adnexal region within normal limits. INGUINAL: There is no lymphadenopathy or hernia. MUSCULOSKELETAL: Within normal limits for patient age. CONCLUSION: 1. Mild circumferential wall thickening of the cecum. Mild adjacent right lower quadrant inflammatory change. Cecum is incompletely distended. Differential diagnosis includes inflammatory bowel disease and infection 2. The visualized portion of the appendix is normal diameter. Gas is seen within the lumen. 3. 3.4 cm rounded hypodensity in the left ovary. Most likely to represent a cyst. Could be \evaluated with greater specificity using pelvic ultrasound. 4. Mild splenomegaly. Chester Govea MD on June 05, 2016 at 3:51 Board Certified Radiologist. This report was verified electronically.
[2016-06-05] MEDS ORDERED: METR-1 PO (04:22)
[2016-06-05] MEDS ORDERED: CIPR500T2 PO (04:22)
== END 2016-06-05 05:42 | disposition home or self-care (01) ==
LOC: NEPC 00:19
DX: K52.9 Noninfective gastroenteritis and colitis, unspecified (principal); Z72.0 Tobacco use; Z87.39 Personal history of other diseases of the musculoskeletal system and connective tissue; Z86.59 Personal history of other mental and behavioral disorders; Z86.19 Personal history of other infectious and parasitic diseases; Z86.69 Personal history of other diseases of the nervous system and sense organs
CPT/HCPCS: 74177; 80053; 80307; 81001; 83605; 84703; 85025; 96374; 99284; J1885; Q9967

== ENCOUNTER 2016-06-08 00:38 | Emergency (ER) | payer SELFPAY ==
[~2016-06-08] VITALS: Ht 157.5 cm; Wt 75.0 kg
[~2016-06-08 00:38] MED LIST changes: +CIPR500T2 PO; +METR-1 PO
[2016-06-08 00:42] VITALS: BP 116/67; PULSE 80; RESP 16; TEMP 97.9; O2SAT 98
--- NOTE | 2016-06-08 02:37 | PD ---
HPI Chief Complaint: Cold / Flu Symptoms Time Seen by Provider: 02:33 Travel History International Travel<30 days: No Contact w/Intl Traveler<30days: No Traveled to known affect area: No History of Present Illness HPI Patient comes in for evaluation of cough and congestion that began yesterday. Patient denies any known fevers, nausea, vomiting, diarrhea, abdominal pain, and , headache, shortness of breath, or . Patient denies doing anything for this. Patient states feels like she is having difficulty breathing through her nose. Patient states cough is dry and nonproductive. Patient also has concerns over pain over her to her cuticles over all of her fingers with the exception of her thumbs. Patient states that she has a nervous habit of picking skin off of them and they're now hurting. PFSH Past Medical History ADHD: No Arthritis: Yes (POSSIBLE [place] ARTHRITIS) Bipolar Disorder: Yes Anxiety: Yes Depression: Yes Cancer: No Cardiovascular Problems: No Diabetes: No Diminished Hearing: No Endocrine: No Gastrointestinal Disorders: Yes (HEP C) Genitourinary: No Immune Disorder: No Musculoskeletal: Yes (SPINAL STENOSIS, SCOLIOSIS) Neurologic: Yes Psychiatric: Yes (HBS HX/SCHIZOAFFECTIVE, PTSD, ANXIETY DO) Reproductive: No Respiratory: No Migraines: No Schizophrenia: Yes Seizures: Yes (NONE RECENTLY) Thyroid Disease: No Ulcer: No ?: Unknown LMP: 06/07/16 : 2 Para: 1 Miscarriage: 1 : 1 Dilation and Curettage (D&C): Yes Past Surgical History Appendectomy: No Section: Yes (2008) Cholecystectomy: No Other Surgery: Yes (RECENT ELECTIVE ) Social History Alcohol Use: No Tobacco Use: Yes (5-10 cigs daily) Substance Use: Yes (AMPHETAMINES) Allergies-Medications (Allergen,Severity, Reaction): Coded Allergies: Morphine (Verified Allergy, Severe, 06/08/16) PER RECORD FROM [facility] Cultivated Oat Pollen (Verified Allergy, Mild, RASH, 06/08/16) Dust (Verified Allergy, Mild, RASH, 06/08/16) Reported Meds & Prescriptions Reported Meds & Active Scripts Active Flagyl (Metronidazole) 500 Mg Tab 500 Mg PO TID 10 Days Ciprofloxacin (Ciprofloxacin HCl) 500 Mg Tab 500 Mg PO BID 10 Days Bactrim DS (Sulfamethoxazole-Trimethoprim) 800-160 Mg Tab 1 Tab PO Q12HR 3 Days Neurontin (Gabapentin) 300 Mg Cap 600 Mg PO BID [address] (Divalproex Sodium) 500 Mg Tabdr 500 Mg PO BID 10 Days Celexa (Citalopram Hydrobromide) 40 Mg Tab 40 Mg PO DAILY 10 Days Review of Systems Except as stated in HPI: all other systems reviewed are Neg Physical Exam Narrative GENERAL: Well-developed, overly nourished, in no acute distress, and non-ill appearing. SKIN: Warm and dry. Irritation noted all cuticles with exception of the thumbs. There is no obvious paronychia or felon noted. There is no cellulitis or abscesses. HEAD: Atraumatic. Normocephalic. EYES: Pupils equal and round. EOMI. No scleral icterus. No injection or drainage. ENT: No nasal bleeding or discharge. Mucous membranes pink and moist. Tympanic membranes pearly chavez bilaterally. Posterior pharynx non-erythematous without exudate. Uvula is midline. No tenderness to facial sinuses to palpation. NECK: Trachea midline. No cervical lymphadenopathy. Supple. No nuclear rigidity. CARDIOVASCULAR: Regular rate and rhythm. No murmur appreciated. RESPIRATORY: No accessory muscle use. No respiratory distress. Clear to auscultation. Breath sounds equal bilaterally. MUSCULOSKELETAL: No obvious deformities. No clubbing. No cyanosis. No edema. Full range of motion. NEUROLOGICAL: Awake and alert. No obvious cranial nerve deficits. Motor grossly within normal limits. Normal speech. PSYCHIATRIC: Appropriate mood and affect; insight and judgment normal. Data Data Last Documented VS Vital Signs Date Time Temp Pulse Resp B/P Pulse Ox O2 Delivery O2 Flow Rate FiO2 06/08/16 00:42 97.9 80 16 116/67 98 Room Air [facility] Medical Decision Making Medical Screen Exam Complete: Yes Emergency Medical Condition: Yes Differential Diagnosis Influenza, strep pharyngitis, bronchitis, upper respiratory infection, viral syndrome, paronychia, felon, other Narrative Course Patients symptom complex of cough and congestion is consistent with viral URI. The patient is non-ill appearing and is in no respiratory distress and comfortable. The patient moves air well and oxygen saturations are normal. There is no clinical evidence to suggest pneumonia at this time. Plan of care and management were discussed with the patient who agreed with plan. The patient was instructed to follow up with their physician and instructed to return if worsens, progressively worsening shortness of breath or difficulty breathing, persistent fever, chest pains or discomfort, inability to keep medication or fluids down with or without vomiting, or as needed. Patient in no obvious distress upon re-evaluation. Any questions/concerns in reference to patient diagnosis/condition discussed and clarified prior to patient's discharge. Reinforced sheer importance of close follow up with patient 's primary physician or primary care clinic. Instructed patient to return to ED immediately, if symptoms return/worsen. Pt showed understanding of above instructions. Further instructions and recommendations were detailed in discharge paperwork. Pt ambulated without difficulty out of ED at discharge. Diagnosis Primary Impression: Upper respiratory infection Qualified Code: J06.9 - Upper respiratory tract infection, unspecified type Additional Impression: Skin irritation Patient Instructions: Acute Wound Care (ED), General Instructions, Paronychia ( ED), Upper Respiratory Infection (ED) Additional Instructions: Follow-up with your primary care physician or return here in 2 days for recheck. Take all medication as prescribed. Return to the emergency department if symptoms get worse. Disposition: 01 DISCHARGE HOME Condition: Stable Rajeev Johnson Jun 08, 2016 02:37
== END 2016-06-08 02:59 | disposition home or self-care (01) ==
LOC: NEPB 00:38
DX: J06.9 Acute upper respiratory infection, unspecified (principal); R23.8 Other skin changes; M79.646 Pain in unspecified finger(s); R05 Cough; Z72.0 Tobacco use; Z87.39 Personal history of other diseases of the musculoskeletal system and connective tissue; Z86.59 Personal history of other mental and behavioral disorders; Z87.19 Personal history of other diseases of the digestive system; Z86.69 Personal history of other diseases of the nervous system and sense organs
CPT/HCPCS: 99283